=== PATIENT | male | born 1990 | race Caucasian/White ===

== ENCOUNTER 2017-09-28 08:50 | Emergency (ER) | payer OTHER ==
[~2017-09-28] VITALS: Ht 167.6 cm; Wt 113.4 kg
[~2017-09-28 08:50] MED LIST: COUMADIN 5 MG TA5 M1 PO; TRIAMCINOLONE A80 G2 TOP
[2017-09-28 09:37] LABS: ABSOLUTE BASOPHILS 0.2 thou/uL (0.0-0.2); ABSOLUTE EOSINOPHILS 0.2 thou/uL (0.0-0.7); ABSOLUTE LYMPHOCYTES 5.4 thou/uL (0.8-5.3); ABSOLUTE NEUTROPHILS 7.4 thou/uL (1.6-8.1); BASOPHILS 1.3 %; EOSINOPHILS 1.5 %; HEMATOCRIT 40.9 % (42.0-52.0); HEMOGLOBIN 13.6 gm/dL (14.0-18.0); MCH 29.2 pg (26.0-34.0); MCHC 33.2 g/dL (28.0-37.0); MONOCYTES 6.8 %; NUCLEATED RBCS 0 /100WBC; PLATELET COUNT* 269 thou/uL (150-400); POLYS 52.4 %; RBC 4.65 mil/uL (4.50-6.00); RDW-CV 13.4 % (10.5-14.5); WBC 14.1 thou/uL (4.0-11.0)
[2017-09-28 09:46] LABS: CALCIUM 8.8 mg/dL (8.5-10.1); CREATININE 0.9 mg/dL (0.6-1.3); POTASSIUM 3.6 mmol/L (3.5-5.1)
[2017-09-28 09:51] LABS: ALBUMIN 3.5 g/dL (3.4-5.0); TOTAL BILIRUBIN 0.2 mg/dL (<0.1-1.0); TOTAL PROTEIN 6.8 g/dL (6.4-8.2)
[2017-09-28 10:07] VITALS: BP 127/64
== END 2017-09-28 10:08 | disposition home or self-care (01) ==
LOC: M.ERS 08:50
PROVIDERS: Personal Emergency Response Attendant
DX: K21.0 Gastro-esophageal reflux disease with esophagitis (principal)

== ENCOUNTER 2020-05-02 11:03 | Emergency (ER) | payer BC ==
[~2020-05-02] VITALS: Ht 167.6 cm; Wt 117.9 kg
[2020-05-02 12:17] LABS: INFLUENZA A ANTIGEN Negative (Negative); INFLUENZA B ANTIGEN Negative (Negative)
[2020-05-02] MEDS ORDERED: AMOXICILLIN 50500 MG PO (12:45)
[2020-05-02 12:50] VITALS: BP 147/99
== END 2020-05-02 12:51 | disposition home or self-care (01) ==
LOC: M.ERS 11:03
PROVIDERS: Nurse Practitioner Family
DX: J02.9 Acute pharyngitis, unspecified (principal); Z20.828 Contact with and (suspected) exposure to other viral communicable diseases; F17.210 Nicotine dependence, cigarettes, uncomplicated